=== PATIENT | female | born 1960 | race Caucasian/White ===

== ENCOUNTER 2019-02-25 14:10 | Inpatient (IN) | payer MEDICARE, MEDICAID ==
[~2019-02-25] VITALS: Ht 167.6 cm; Wt 102.1 kg
[~2019-02-25 14:10] MED LIST: ATOR40TA28 PO; CHOL100018 PO; DIVA-76 PO; LISI-661 PO; LURA80 PO; METF-960 PO; NACL1 PO
[2019-02-25 17:11] VITALS: BP 132/93
[2019-02-25] MEDS ORDERED: PNEUMOCOCCAL VACCINE POLYVALENT 0.5 ML VIAL [PPSV23] IM ONE (17:45)
[2019-02-25] MEDS ORDERED: INFLUENZA VIRUS VACCINE QVS 2019-20 (3YR+)/PF 60 MCG/0.5 ML SYRINGE IM ONE (17:45)
[2019-02-25] MEDS ORDERED: ZOLPIDEM TARTRATE 10 MG TABLET PO PRN (19:00)
[2019-02-25] MEDS ORDERED: QUEtiapine FUMARATE 100 MG TABLET PO PRN (19:00)
[2019-02-25] MEDS ORDERED: QUET300T2 PO (19:16)
[2019-02-25] MEDS ORDERED: FLUD25I IM (19:16)
[2019-02-25] MEDS ORDERED: QUET200T PO (19:16)
[2019-02-25] MEDS ORDERED: ATOR20TA86 PO (19:16)
[2019-02-25] MEDS ORDERED: IBUP-2071 PO (19:16)
[2019-02-25] MEDS ORDERED: DAPA1TAB3 PO (19:16)
[2019-02-25] MEDS ORDERED: BENZ2TAB10 PO (19:16)
[2019-02-25 20:21] LABS: GLUCOMETER DEV NAME(LOC) BV2X.; GLUCOSE,POINT OF CARE 121 MG/DL (70-110)
[2019-02-25] MEDS ORDERED: GLUCAGON,HUMAN RECOMBINANT 1 MG VIAL IM PRN (21:30)
[2019-02-26] MEDS ORDERED: LOPERAMIDE HCL 2 MG CAPSULE PO PRN
[2019-02-26] MEDS ORDERED: ALBUTEROL SULFATE HFA 90 MCG/PUFF 8 GM INHALER IH PRN
[2019-02-26] MEDS ORDERED: NICOTINE 14 MG/24 HOUR PATCH TD PRN
[2019-02-26] MEDS ORDERED: CloNIDine HCL 0.1 MG TABLET PO PRN
[2019-02-26] MEDS ORDERED: ONDANSETRON HCL 4 MG TABLET PO PRN
[2019-02-26] MEDS ORDERED: MAGNESIUM HYDROXIDE SUSPENSION 30 ML UDCUP PO PRN
[2019-02-26] MEDS ORDERED: GuaiFENesin/D-METHORPHAN [SUGAR-FREE] 200-20MG/10 ML SYRUP UDCUP PO PRN
[2019-02-26] MEDS ORDERED: DOCUSATE SODIUM 100 MG CAPSULE PO PRN
[2019-02-26] MEDS ORDERED: ACETAMINOPHEN 325 MG TABLET PO PRN
[2019-02-26] MEDS ORDERED: IBUPROFEN 400 MG TABLET PO PRN
[2019-02-26] MEDS ORDERED: PETROLATUM,WHITE 28 GM JELLY TP PRN
[2019-02-26] MEDS ORDERED: MAG HYDROX/AL HYDROX/SIMETH ES 30 ML SUSPENSION UDCUP PO PRN
[2019-02-26 01:22] VITALS: BP 119/79
[2019-02-26 06:26] LABS: GLUCOMETER DEV NAME(LOC) BV2X.; GLUCOSE,POINT OF CARE 117 MG/DL (70-110)
[2019-02-26] MEDS: MetFORMIN HCL 500 MG TABLET PO SCH ×2 (07:10→16:45)
[2019-02-26 07:29] LABS: BASOPHILS % (AUTO) 0.6 % (0.0-2.0); EOSINOPHILS % (AUTO) 4.8 % (1.0-6.0); HEMATOCRIT 43.7 % (36-46); HEMOGLOBIN 14.4 g/dL (12.0-16.0); LYMPHOCYTES # (AUTO) 2.7 K/uL (1.0-4.8); MEAN CORPUSCULAR HEMOGLOBIN 30.1 pg (26.0-34.0); MEAN CORPUSCULAR HGB CONC 32.9 G/dL (31.0-37.0); MEAN CORPUSCULAR VOLUME 91 fL (80-100); MONOCYTES # (AUTO) 0.5 K/uL (0.1-1.0); NEUTROPHILS # (AUTO) 2.8 K/uL (1.8-7.7); NEUTROPHILS % (AUTO) 43.6 % (40.0-70.0); PLATELET COUNT (AUTO) 233 K/uL (150-450); RED BLOOD CELL COUNT(AUTO) 4.78 MIL/uL (4.00-5.20); RED CELL DISTRIBUTION WIDTH 13.7 % (11.5-14.5)
[2019-02-26 07:37] LABS: HEMOGLOBIN A1C 6.9 % (4.5-6.2)
[2019-02-26 08:10] LABS: ALANINE AMINOTRANSFERASE 57 U/L (12-78); ALBUMIN 3.8 g/dL (3.4-5.0); ALKALINE PHOSPHATASE 94 U/L (46-116); ANION GAP 10 mmol/L (8-16); ASPARTATE AMINOTRANSFERASE 29 U/L (15-37); BILIRUBIN,TOTAL 0.5 mg/dL (0.1-1.0); CALCIUM, TOTAL 9.4 mg/dL (8.8-10.5); CARBON DIOXIDE 23 mmol/L (22-29); CHLORIDE 102 mmol/L (98-107); CHOL/HDL RATIO 2.7 (3.9-5.7); CHOLESTEROL 152 mg/dL (131-200); CREATININE 0.92 mg/dL (0.60-1.30); FREE T4 (FREE THYROXINE) 0.76 ng/dL (0.76-1.46); GLOMERULAR FILTR. RATE CALC > 60 mL/min (>60); GLUCOSE,RANDOM 131 mg/dL (70-110); HDL CHOLESTEROL 56 mg/dL (40-60); LDL CHOL (CALC.) 68 mg/dL (0-130); POTASSIUM 4.1 mmol/L (3.5-5.1); SODIUM SERUM 135 mmol/L (136-145); THYROID STIMULATING HORMONE 2.47 uIU/mL (0.36-3.74); TRIGLYCERIDES 142 mg/dL (15-150); UREA NITROGEN, BLOOD 11 mg/dL (7-18)
[2019-02-26 08:20] VITALS: BP 129/72
[2019-02-26] MEDS: ATORVASTATIN CALCIUM 20 MG TABLET PO SCH (08:58)
[2019-02-26] MEDS: CHOLECALCIFEROL (VIT D3) 1,000 UNITS TABLET PO SCH (08:58)
[2019-02-26 11:16] LABS: GLUCOMETER DEV NAME(LOC) BV2X.; GLUCOSE,POINT OF CARE 148 MG/DL (70-110)
[2019-02-26] MEDS: QUEtiapine FUMARATE 200 MG TABLET PO SCH (12:26)
[2019-02-26] MEDS: INSULIN LISPRO 100 UNITS/ML SQ PRN ×3 (12:40→21:24)
[2019-02-26 16:11] VITALS: BP 139/92
[2019-02-26 16:56] LABS: GLUCOMETER DEV NAME(LOC) BV2X.; GLUCOSE,POINT OF CARE 151 MG/DL (70-110)
[2019-02-26] MEDS: QUEtiapine FUMARATE 300 MG TABLET PO SCH (20:34)
[2019-02-26 21:01] LABS: GLUCOMETER DEV NAME(LOC) BV2X.; GLUCOSE,POINT OF CARE 131 MG/DL (70-110)
[2019-02-27] MEDS: INSULIN LISPRO 100 UNITS/ML SQ PRN ×4 (06:30→20:43)
[2019-02-27 06:32] LABS: GLUCOMETER DEV NAME(LOC) BV2X.; GLUCOSE,POINT OF CARE 143 MG/DL (70-110)
[2019-02-27] MEDS: MetFORMIN HCL 500 MG TABLET PO SCH ×2 (06:33→16:44)
[2019-02-27 07:10] VITALS: BP 130/81
[2019-02-27 08:32] VITALS: BP 110/69
[2019-02-27] MEDS: CHOLECALCIFEROL (VIT D3) 1,000 UNITS TABLET PO SCH (08:35)
[2019-02-27] MEDS: QUEtiapine FUMARATE 200 MG TABLET PO SCH (08:35)
[2019-02-27] MEDS: ATORVASTATIN CALCIUM 20 MG TABLET PO SCH (08:35)
[2019-02-27 11:16] LABS: GLUCOMETER DEV NAME(LOC) BV2X.; GLUCOSE,POINT OF CARE 146 MG/DL (70-110)
[2019-02-27 16:09] VITALS: BP 110/70
[2019-02-27 16:46] LABS: GLUCOMETER DEV NAME(LOC) BV2X.; GLUCOSE,POINT OF CARE 135 MG/DL (70-110)
[2019-02-27] MEDS: QUEtiapine FUMARATE 300 MG TABLET PO SCH (20:33)
[2019-02-27 21:05] LABS: GLUCOMETER DEV NAME(LOC) BV2X.; GLUCOSE,POINT OF CARE 121 MG/DL (70-110)
[2019-02-28 06:17] VITALS: BP 101/63
[2019-02-28] MEDS: MetFORMIN HCL 500 MG TABLET PO SCH ×2 (06:23→16:09)
[2019-02-28 06:36] LABS: GLUCOMETER DEV NAME(LOC) BV2X.; GLUCOSE,POINT OF CARE 134 MG/DL (70-110)
[2019-02-28] MEDS: INSULIN LISPRO 100 UNITS/ML SQ PRN ×4 (06:42→21:31)
[2019-02-28 08:24] VITALS: BP 110/70
[2019-02-28] MEDS: ATORVASTATIN CALCIUM 20 MG TABLET PO SCH (08:41)
[2019-02-28] MEDS: CHOLECALCIFEROL (VIT D3) 1,000 UNITS TABLET PO SCH (08:41)
[2019-02-28] MEDS: QUEtiapine FUMARATE 200 MG TABLET PO SCH (08:41)
[2019-02-28 11:56] LABS: GLUCOMETER DEV NAME(LOC) BV2X.; GLUCOSE,POINT OF CARE 137 MG/DL (70-110)
[2019-02-28 16:12] VITALS: BP 122/92
[2019-02-28 16:16] LABS: GLUCOMETER DEV NAME(LOC) BV2X.; GLUCOSE,POINT OF CARE 131 MG/DL (70-110)
[2019-02-28] MEDS: LORazepam 2 MG TABLET PO PRN (16:30)
[2019-02-28 20:52] VITALS: BP 120/88
[2019-02-28] MEDS: QUEtiapine FUMARATE 300 MG TABLET PO SCH (21:17)
[2019-02-28 21:35] LABS: GLUCOMETER DEV NAME(LOC) BV2X.; GLUCOSE,POINT OF CARE 166 MG/DL (70-110)
[2019-03-01 06:30] LABS: GLUCOMETER DEV NAME(LOC) BV2X.; GLUCOSE,POINT OF CARE 130 MG/DL (70-110)
[2019-03-01] MEDS: INSULIN LISPRO 100 UNITS/ML SQ PRN ×4 (06:43→21:52)
[2019-03-01] MEDS: MetFORMIN HCL 500 MG TABLET PO SCH ×2 (06:53→17:23)
[2019-03-01 07:19] VITALS: BP 118/70
[2019-03-01 08:28] VITALS: BP 110/68
[2019-03-01] MEDS: QUEtiapine FUMARATE 200 MG TABLET PO SCH (08:44)
[2019-03-01] MEDS: CHOLECALCIFEROL (VIT D3) 1,000 UNITS TABLET PO SCH (08:44)
[2019-03-01] MEDS: ATORVASTATIN CALCIUM 20 MG TABLET PO SCH (08:44)
[2019-03-01 11:36] LABS: GLUCOMETER DEV NAME(LOC) BV2X.; GLUCOSE,POINT OF CARE 141 MG/DL (70-110)
[2019-03-01 16:38] VITALS: BP 103/68
[2019-03-01 16:52] LABS: GLUCOMETER DEV NAME(LOC) BV2X.; GLUCOSE,POINT OF CARE 146 MG/DL (70-110)
[2019-03-01] MEDS: QUEtiapine FUMARATE 300 MG TABLET PO SCH (20:37)
[2019-03-01 21:21] LABS: GLUCOMETER DEV NAME(LOC) BV2X.; GLUCOSE,POINT OF CARE 140 MG/DL (70-110)
[2019-03-02 02:03] VITALS: BP 120/67
[2019-03-02 06:26] LABS: GLUCOMETER DEV NAME(LOC) BV2X.; GLUCOSE,POINT OF CARE 113 MG/DL (70-110)
[2019-03-02] MEDS: MetFORMIN HCL 500 MG TABLET PO SCH ×2 (06:32→16:18)
[2019-03-02 08:25] VITALS: BP 109/66
[2019-03-02] MEDS: CHOLECALCIFEROL (VIT D3) 1,000 UNITS TABLET PO SCH (08:41)
[2019-03-02] MEDS: QUEtiapine FUMARATE 200 MG TABLET PO SCH (08:41)
[2019-03-02] MEDS: ATORVASTATIN CALCIUM 20 MG TABLET PO SCH (08:41)
[2019-03-02 11:10] LABS: GLUCOMETER DEV NAME(LOC) BV2X.; GLUCOSE,POINT OF CARE 117 MG/DL (70-110)
[2019-03-02 16:12] VITALS: BP 121/79
[2019-03-02 17:01] LABS: GLUCOMETER DEV NAME(LOC) BV2X.; GLUCOSE,POINT OF CARE 195 MG/DL (70-110)
[2019-03-02] MEDS: INSULIN LISPRO 100 UNITS/ML SQ PRN (17:16)
[2019-03-02] MEDS: QUEtiapine FUMARATE 300 MG TABLET PO SCH (20:01)
[2019-03-02 21:21] LABS: GLUCOMETER DEV NAME(LOC) BV2X.; GLUCOSE,POINT OF CARE 121 MG/DL (70-110)
[2019-03-03 02:22] VITALS: BP 105/64
[2019-03-03 06:55] LABS: GLUCOMETER DEV NAME(LOC) BV2X.; GLUCOSE,POINT OF CARE 125 MG/DL (70-110)
[2019-03-03] MEDS: MetFORMIN HCL 500 MG TABLET PO SCH ×2 (07:17→16:34)
[2019-03-03] MEDS: ATORVASTATIN CALCIUM 20 MG TABLET PO SCH (08:47)
[2019-03-03] MEDS: QUEtiapine FUMARATE 200 MG TABLET PO SCH (08:47)
[2019-03-03] MEDS: CHOLECALCIFEROL (VIT D3) 1,000 UNITS TABLET PO SCH (08:48)
[2019-03-03 10:47] VITALS: BP 123/70
[2019-03-03] MEDS: LORazepam 2 MG TABLET PO PRN (11:41)
[2019-03-03] MEDS: INSULIN LISPRO 100 UNITS/ML SQ PRN ×3 (11:57→20:56)
[2019-03-03 16:19] VITALS: BP 120/73
[2019-03-03 16:31] LABS: GLUCOMETER DEV NAME(LOC) BV2X.; GLUCOSE,POINT OF CARE 165 MG/DL (70-110)
[2019-03-03] MEDS: QUEtiapine FUMARATE 300 MG TABLET PO SCH (20:33)
[2019-03-03 20:36] LABS: GLUCOMETER DEV NAME(LOC) BV2X.; GLUCOSE,POINT OF CARE 169 MG/DL (70-110)
[2019-03-04 06:30] VITALS: BP 116/68
[2019-03-04 06:41] LABS: GLUCOMETER DEV NAME(LOC) BV2X.; GLUCOSE,POINT OF CARE 135 MG/DL (70-110)
[2019-03-04] MEDS: INSULIN LISPRO 100 UNITS/ML SQ PRN ×4 (06:42→20:41)
[2019-03-04] MEDS: MetFORMIN HCL 500 MG TABLET PO SCH ×2 (06:47→16:36)
[2019-03-04 08:29] VITALS: BP 99/61
[2019-03-04] MEDS: QUEtiapine FUMARATE 200 MG TABLET PO SCH (08:42)
[2019-03-04] MEDS: CHOLECALCIFEROL (VIT D3) 1,000 UNITS TABLET PO SCH (08:42)
[2019-03-04] MEDS: ATORVASTATIN CALCIUM 20 MG TABLET PO SCH (08:42)
[2019-03-04 11:26] LABS: GLUCOMETER DEV NAME(LOC) BV2X.; GLUCOSE,POINT OF CARE 132 MG/DL (70-110)
[2019-03-04 16:11] VITALS: BP 131/77
[2019-03-04 16:20] LABS: GLUCOMETER DEV NAME(LOC) BV2X.; GLUCOSE,POINT OF CARE 201 MG/DL (70-110)
[2019-03-04 20:20] LABS: GLUCOMETER DEV NAME(LOC) BV2X.; GLUCOSE,POINT OF CARE 157 MG/DL (70-110)
[2019-03-04] MEDS: QUEtiapine FUMARATE 300 MG TABLET PO SCH (20:40)
[2019-03-05 00:14] VITALS: BP 124/70
[2019-03-05 06:41] LABS: GLUCOMETER DEV NAME(LOC) BV2X.; GLUCOSE,POINT OF CARE 129 MG/DL (70-110)
[2019-03-05] MEDS: INSULIN LISPRO 100 UNITS/ML SQ PRN ×4 (06:45→20:51)
[2019-03-05] MEDS: MetFORMIN HCL 500 MG TABLET PO SCH ×2 (06:50→16:39)
[2019-03-05 08:20] VITALS: BP 122/80
[2019-03-05] MEDS: QUEtiapine FUMARATE 200 MG TABLET PO SCH (08:59)
[2019-03-05] MEDS: CHOLECALCIFEROL (VIT D3) 1,000 UNITS TABLET PO SCH (08:59)
[2019-03-05] MEDS: ATORVASTATIN CALCIUM 20 MG TABLET PO SCH (08:59)
[2019-03-05] MEDS: ILOPERIDONE 4 MG TABLET PO SCH ×2 (11:00→20:41)
[2019-03-05 11:11] LABS: GLUCOMETER DEV NAME(LOC) BV2X.; GLUCOSE,POINT OF CARE 156 MG/DL (70-110)
[2019-03-05] MEDS: BENZTROPINE MESYLATE 2 MG TABLET PO SCH ×2 (12:51→20:37)
[2019-03-05 16:30] LABS: GLUCOMETER DEV NAME(LOC) BV2X.; GLUCOSE,POINT OF CARE 142 MG/DL (70-110)
[2019-03-05 17:15] VITALS: BP 118/88
[2019-03-05 20:35] LABS: GLUCOMETER DEV NAME(LOC) BV2X.; GLUCOSE,POINT OF CARE 132 MG/DL (70-110)
[2019-03-05] MEDS: QUEtiapine FUMARATE 300 MG TABLET PO SCH (20:35)
[2019-03-06 01:10] VITALS: BP 110/68
[2019-03-06 06:26] LABS: GLUCOMETER DEV NAME(LOC) BV2X.; GLUCOSE,POINT OF CARE 129 MG/DL (70-110)
[2019-03-06] MEDS: INSULIN LISPRO 100 UNITS/ML SQ PRN ×4 (06:48→20:57)
[2019-03-06] MEDS: MetFORMIN HCL 500 MG TABLET PO SCH ×2 (06:48→16:29)
[2019-03-06 08:26] VITALS: BP 121/80
[2019-03-06] MEDS: CHOLECALCIFEROL (VIT D3) 1,000 UNITS TABLET PO SCH (08:52)
[2019-03-06] MEDS: BENZTROPINE MESYLATE 2 MG TABLET PO SCH ×2 (08:52→20:39)
[2019-03-06] MEDS: QUEtiapine FUMARATE 200 MG TABLET PO SCH (08:52)
[2019-03-06] MEDS: ATORVASTATIN CALCIUM 20 MG TABLET PO SCH (08:52)
[2019-03-06] MEDS: ILOPERIDONE 4 MG TABLET PO SCH ×2 (09:00→20:39)
[2019-03-06 11:26] LABS: GLUCOMETER DEV NAME(LOC) BV2S.; GLUCOSE,POINT OF CARE 212 MG/DL (70-110)
[2019-03-06 16:05] VITALS: BP 114/67
[2019-03-06 16:21] LABS: GLUCOMETER DEV NAME(LOC) BV2X.; GLUCOSE,POINT OF CARE 224 MG/DL (70-110)
[2019-03-06 20:40] LABS: GLUCOMETER DEV NAME(LOC) BV2X.; GLUCOSE,POINT OF CARE 162 MG/DL (70-110)
[2019-03-06] MEDS: QUEtiapine FUMARATE 300 MG TABLET PO SCH (20:40)
[2019-03-07 00:20] VITALS: BP 114/74
[2019-03-07 06:25] LABS: GLUCOMETER DEV NAME(LOC) BV2X.; GLUCOSE,POINT OF CARE 155 MG/DL (70-110)
[2019-03-07] MEDS: INSULIN LISPRO 100 UNITS/ML SQ PRN ×3 (06:39→21:06)
[2019-03-07] MEDS: MetFORMIN HCL 500 MG TABLET PO SCH ×2 (06:39→16:30)
[2019-03-07 08:38] VITALS: BP 107/78
[2019-03-07] MEDS: ATORVASTATIN CALCIUM 20 MG TABLET PO SCH (08:43)
[2019-03-07] MEDS: CHOLECALCIFEROL (VIT D3) 1,000 UNITS TABLET PO SCH (08:43)
[2019-03-07] MEDS: BENZTROPINE MESYLATE 2 MG TABLET PO SCH ×2 (08:43→20:52)
[2019-03-07] MEDS: QUEtiapine FUMARATE 200 MG TABLET PO SCH (08:43)
[2019-03-07] MEDS: ILOPERIDONE 4 MG TABLET PO SCH ×2 (08:44→20:52)
[2019-03-07 10:36] LABS: GLUCOMETER DEV NAME(LOC) BV2X.; GLUCOSE,POINT OF CARE 189 MG/DL (70-110)
[2019-03-07 16:08] VITALS: BP 124/79
[2019-03-07 16:32] LABS: GLUCOMETER DEV NAME(LOC) BV2X.; GLUCOSE,POINT OF CARE 95 MG/DL (70-110)
[2019-03-07 20:51] LABS: GLUCOMETER DEV NAME(LOC) BV2X.; GLUCOSE,POINT OF CARE 226 MG/DL (70-110)
[2019-03-07] MEDS: QUEtiapine FUMARATE 300 MG TABLET PO SCH (20:52)
[2019-03-08] MEDS: LORazepam 2 MG TABLET PO PRN (00:04)
[2019-03-08 00:05] VITALS: BP 116/72
[2019-03-08 06:26] LABS: GLUCOMETER DEV NAME(LOC) BV2X.; GLUCOSE,POINT OF CARE 132 MG/DL (70-110)
[2019-03-08] MEDS: MetFORMIN HCL 500 MG TABLET PO SCH ×2 (07:13→16:05)
[2019-03-08 08:20] VITALS: BP 120/71
[2019-03-08] MEDS: CHOLECALCIFEROL (VIT D3) 1,000 UNITS TABLET PO SCH (08:57)
[2019-03-08] MEDS: ATORVASTATIN CALCIUM 20 MG TABLET PO SCH (08:57)
[2019-03-08] MEDS: ILOPERIDONE 4 MG TABLET PO SCH (08:57)
[2019-03-08] MEDS: QUEtiapine FUMARATE 200 MG TABLET PO SCH (08:57)
[2019-03-08] MEDS: BENZTROPINE MESYLATE 2 MG TABLET PO SCH (08:58)
[2019-03-08] MEDS ORDERED: QUET300T18 PO (10:53)
[2019-03-08] MEDS ORDERED: BENZ2TAB10 PO ×2 (10:53→11:05)
[2019-03-08] MEDS ORDERED: QUET200T29 PO (10:53)
[2019-03-08] MEDS ORDERED: ILOP4TAB2 PO ×2 (10:53→11:05)
[2019-03-08] MEDS ORDERED: METF500T PO (11:05)
[2019-03-08] MEDS ORDERED: QUET200T PO (11:05)
[2019-03-08] MEDS ORDERED: ATOR20TA86 PO (11:05)
[2019-03-08] MEDS ORDERED: CHOL100018 PO (11:05)
[2019-03-08] MEDS ORDERED: QUET300T2 PO (11:05)
[2019-03-08 11:51] LABS: GLUCOMETER DEV NAME(LOC) BV2X.; GLUCOSE,POINT OF CARE 213 MG/DL (70-110)
[2019-03-08] MEDS: INSULIN LISPRO 100 UNITS/ML SQ PRN ×2 (11:54→17:39)
[2019-03-08 16:10] VITALS: BP 122/84
[2019-03-08 17:12] LABS: GLUCOMETER DEV NAME(LOC) BV2X.; GLUCOSE,POINT OF CARE 143 MG/DL (70-110)
== END 2019-03-08 21:03 | disposition home or self-care (01) | DRG 885 ==
LOC: B2X 18:45
DX: F20.0 Paranoid schizophrenia (principal); E03.9 Hypothyroidism, unspecified; E11.9 Type 2 diabetes mellitus without complications; E55.9 Vitamin D deficiency, unspecified; E78.00 Pure hypercholesterolemia, unspecified; E78.5 Hyperlipidemia, unspecified; I10 Essential (primary) hypertension; Z79.899 Other long term (current) drug therapy; Z28.21 Immunization not carried out because of patient refusal; Z88.8 Allergy status to other drugs, medicaments and biological substances
CPT/HCPCS: 83036; 84439; 84443